=== PATIENT | female | born 1980 | race Caucasian/White ===

== ENCOUNTER 2019-11-08 23:27 | Emergency (ER) | payer BC | END 2019-11-08 23:57 | disposition home or self-care (01) | LOC: ERS 23:27 | DX: J06.9 Acute upper respiratory infection, unspecified (principal); F41.9 Anxiety disorder, unspecified; F17.210 Nicotine dependence, cigarettes, uncomplicated | CPT/HCPCS: 99283 ==

== ENCOUNTER 2022-12-09 07:52 | Outpatient (CLI) | payer BC | END 2022-12-09 07:53 | disposition home or self-care (01) | LOC: ULT 07:52 | PROVIDERS: ATTEND Nurse Practitioner Family | DX: R74.01 Elevation of levels of liver transaminase levels (principal) | CPT/HCPCS: 76705 ==